=== PATIENT | female | born 1985 | race Caucasian/White ===

== ENCOUNTER 2017-04-14 18:41 | Inpatient (IN) | payer OTHER ==
[2017-04-14] MEDS ORDERED: LACTATED RINGER'S 1,000 ML IV (19:07)
[2017-04-14] MEDS: LACTATED RINGER'S 1,000 ML IV (19:10)
[2017-04-14] MEDS ORDERED: OXYTOCIN 30 UNITS/LR 500 ML IV ×2 (19:30→23:00)
[2017-04-14] MEDS ORDERED: CA GLUCONATE (GM) 10% 10ML INJ IV (19:30)
[2017-04-14] MEDS ORDERED: MISOPROSTOL 200 MCG TAB PR ×2 (19:30→23:00)
[2017-04-14] MEDS: AMPICILLIN 2 GM/NS (PMX) 100 ML IV (19:30)
[2017-04-14] MEDS ORDERED: CARBOPROST 250 MCG INJ IM ×2 (19:30→23:00)
[2017-04-14] MEDS ORDERED: LIDOCAINE 1% (MPF) 30 ML INJ INJ (19:30)
[2017-04-14] MEDS ORDERED: IBUPROFEN 600 MG TAB PO (19:30)
[2017-04-14] MEDS ORDERED: METHYLERGONOVINE 0.2 MG INJ IM (19:30)
[2017-04-14] MEDS: MAGNESIUM SULFATE 4 GM/100 ML 100 ML IV (19:38)
[2017-04-14] MEDS: OXYTOCIN 30 UNITS/LR 500 ML IV ×2 (19:55→20:30)
[2017-04-14] MEDS: MAGNESIUM SULFATE 20 GM/500 ML 500 ML IV (20:11)
[2017-04-14 20:46] LABS: ADD MAN DIFF? NO
[2017-04-14 20:50] LABS: BASOPHILS % 0.3 % (0.0-2.0); EOSINOPHILS # 0.1 10^3/ul (0.0-0.5); EOSINOPHILS % 1.6 % (0.0-7.0); HEMATOCRIT 38.3 % (37.0-47.0); HEMOGLOBIN 12.7 g/dl (12.0-16.0); LYMPHOCYTES # 3.5 10^3/ul (0.8-2.9); LYMPHOCYTES % 38.6 % (15.0-51.0); MEAN CORPUSCULAR HGB CONC 33.2 g/dl (32.0-37.0); MEAN CORPUSCULAR VOLUME 90.3 fl (82.0-101.0); MEAN PLATELET VOLUME 12.1 fl (7.4-10.4); MONOCYTE # 0.7 10^3/ul (0.3-0.9); MONOCYTES % 7.7 % (0.0-11.0); NEUTROPHIL # 4.6 10^3/ul (1.6-7.5); NEUTROPHILS % 51.2 % (39.0-77.0); PLATELET COUNT 270 10^3/UL (140-415); RED BLOOD COUNT 4.24 10^6/ul (4.20-5.40)
[2017-04-14 21:03] LABS: ADD UMIC YES; UR AMORPHOUS CRYSTAL FEW /HPF (NONE SEEN); UR ASCORBIC ACID NEGATIVE (NEGATIVE); UR BILIRUBIN (Dip) NEGATIVE (NEGATIVE); UR BLOOD (Dip) 3+ mg/dL (NEGATIVE); UR CLARITY CLOUDY (CLEAR); UR COLOR YELLOW (YELLOW); UR GLUCOSE (Dip) NEGATIVE (NEGATIVE); UR KETONES (Dip) 1+ mg/dL (NEGATIVE); UR LEUKOCYTE ESTERASE (Dip) NEGATIVE Leu/ul (NEGATIVE); UR MUCUS FEW /HPF (NONE SEEN); UR NITRITE (Dip) NEGATIVE (NEGATIVE); UR RBC 101 /HPF (0-5); UR SPECIFIC GRAVITY (Dip) 1.019 (1.003-1.030); UR SQUAMOUS EPITHELIAL CELL FEW /HPF (FEW); UR TOTAL PROTEIN (Dip) 2+ mg/dl (NEGATIVE); UR UROBILINOGEN (Dip) NEGATIVE (NEGATIVE); UR WBC 0 /HPF (0-5)
[2017-04-14 21:07] LABS: INR 0.78; PROTIME 10.9 Sec (11.9-14.9); PT RATIO 0.9
[2017-04-14 21:10] LABS: ALANINE AMINOTRANSFERASE 42 IU/L (13-69); ALBUMIN/GLOBULIN RATIO 1.05; ALKALINE PHOSPHATASE 292 IU/L (42-121); ANION GAP 16 (8-16); ASPARTATE AMINO TRANSFERASE 25 IU/L (15-46); BILIRUBIN,INDIRECT 0.1 mg/dl (0-1.1); BILIRUBIN,TOTAL 0.1 mg/dl (0.2-1.3); BLOOD UREA NITROGEN 13 mg/dl (7-20); CALCIUM 10.2 mg/dl (8.4-10.2); CARBON DIOXIDE 21 mmol/L (21-31); CHLORIDE 104 mmol/L (97-110); CREATININE 0.66 mg/dl (0.44-1.00); GLUCOSE 86 mg/dl (70-220); POTASSIUM 4.1 mmol/L (3.5-5.1); SODIUM 137 mmol/L (135-144); TOTAL PROTEIN 7.8 g/dl (6.1-8.1)
[2017-04-14 21:15] LABS: URIC ACID 5.2 mg/dl (3.1-7.9)
[2017-04-14 21:41] LABS: HEPATITIS B SURFACE ANTIGEN NEGATIVE (NEGATIVE)
[2017-04-14] MEDS: WITCH HAZEL/GLYCERIN PAD PR (22:56)
[2017-04-14] MEDS: BENZOCAINE 20% 56 ML SPRAY TOP (22:56)
[2017-04-14] MEDS: LANOLIN 7 GM TUBE TOP (22:56)
[2017-04-14] MEDS: HYDROCODONE/APAP (5/325) TAB PO (22:56)
[2017-04-14] MEDS ORDERED: DIBUCAINE 1% 30 GM OINT PR (23:00)
[2017-04-14] MEDS ORDERED: ACETAMINOPHEN 325 MG TAB PO (23:00)
[2017-04-14] MEDS ORDERED: AMPICILLIN 1 GM/NS (PMX) 50 ML IV (23:30)
[2017-04-15 01:02] LABS: MAGNESIUM 4.2 mg/dl (1.7-2.5)
[2017-04-15] MEDS: LACTATED RINGER'S 1,000 ML IV* ×2 (01:59→15:41)
[2017-04-15] MEDS: HYDROCODONE/APAP (5/325) TAB PO ×3 (03:52→21:23)
[2017-04-15] MEDS: MAGNESIUM SULFATE 20 GM/500 ML 500 ML IV ×2 (05:47→15:42)
[2017-04-15] MEDS: IBUPROFEN 600 MG TAB PO ×5 (05:51→23:48)
[2017-04-15] MEDS: LEVOTHYROXINE 100 MCG TAB PO (07:02)
[2017-04-15 07:25] LABS: ADD MAN DIFF? NO
[2017-04-15 07:29] LABS: BASOPHILS % 0.2 % (0.0-2.0); EOSINOPHILS % 0.2 % (0.0-7.0); HEMATOCRIT 33.6 % (37.0-47.0); HEMOGLOBIN 11.4 g/dl (12.0-16.0); LYMPHOCYTES # 2.7 10^3/ul (0.8-2.9); LYMPHOCYTES % 29.6 % (15.0-51.0); MEAN CORPUSCULAR HEMOGLOBIN 30.2 pg (29.0-33.0); MEAN CORPUSCULAR HGB CONC 33.9 g/dl (32.0-37.0); MEAN CORPUSCULAR VOLUME 89.1 fl (82.0-101.0); MEAN PLATELET VOLUME 11.3 fl (7.4-10.4); MONOCYTE # 0.8 10^3/ul (0.3-0.9); MONOCYTES % 8.4 % (0.0-11.0); NEUTROPHIL # 5.7 10^3/ul (1.6-7.5); NEUTROPHILS % 61.3 % (39.0-77.0); PLATELET COUNT 213 10^3/UL (140-415); RED BLOOD COUNT 3.77 10^6/ul (4.20-5.40); RED CELL DISTRIBUTION WIDTH 13.6 % (11.5-14.5)
[2017-04-15 07:29] LABS: WHITE BLOOD COUNT 9.3 10^3/ul (4.8-10.8)
[2017-04-15 08:20] LABS: MAGNESIUM 5.5 mg/dl (1.7-2.5)
[2017-04-15] MEDS: SENNA/DOCUSATE NA (8.6MG/50MG) TAB PO ×2 (09:57→21:05)
[2017-04-15 16:20] LABS: RAPID PLASMA REAGIN NONREACTIVE (NR)
[2017-04-16] MEDS: IBUPROFEN 600 MG TAB PO ×2 (05:43→11:31)
[2017-04-16] MEDS: LEVOTHYROXINE 100 MCG TAB PO (05:55)
[2017-04-16] MEDS: DIPHTH/TET/ACEL PERTUSS (ADULT) 0.5 ML VIAL IM* (09:00)
[2017-04-16] MEDS: SENNA/DOCUSATE NA (8.6MG/50MG) TAB PO (10:01)
== END 2017-04-16 17:15 | disposition home or self-care (01) | DRG 775 ==
LOC: OBT 18:41 → L-D 18:42 → OBT 18:52 → L-D 18:52 → PP1 22:25
PROC: 10E0XZZ Delivery of Products of Conception, External Approach (ICD-10-PCS; principal; 2017-04-14)
PROC: 0HQ9XZZ Repair Perineum Skin, External Approach (ICD-10-PCS; 2017-04-14)
PROC: 0UQGXZZ Repair Vagina, External Approach (ICD-10-PCS; 2017-04-14)
DX: O70.0 First degree perineal laceration during delivery (principal); O71.89 Other specified obstetric trauma; Z3A.38 38 weeks gestation of pregnancy; Z37.0 Single live birth
CPT/HCPCS: 80053; 81001; 83735; 84560; 85025; 85610; 85730; 86592; 86900; 86901; 87340; 90715